=== PATIENT | female | born 1960 | race Caucasian/White ===

== ENCOUNTER → 2017-10-07 | Outpatient (CLI) | payer OTHER ==
[~2017-10-07] MED LIST: AMOX500T10 PO; BENZ200C15 PO; CALC-635 PO; ESC10 PO; EST3 PO; LUTE10TA3 PO; LUTE20CA11 PO; LUTE6CAP11 PO; MULT-820 PO; MULT-885 PO; SUMA100T33 PO; SUMA4PEN3 SQ; TOPI50TA92 PO; TOPI50TA99 PO; TRIA5T TOP; VERA240T12 PO; [UNRECOGNIZED DRUG - CODE] PO; verapamil PO
--- NOTE | 2017-10-12 09:08 | RADIOLOGY IMAGING REPORT ---
FACILITY: [facility] - [place] PATIENT NAME: TYE HAYS : [id number] MR: [id number] V: [id number] EXAM DATE: [id number] ORDERING PHYSICIAN: ADRIAN NORIEGA TECHNOLOGIST: Rashida Cyr PROCEDURE:BILATERAL DIGITAL SCREENING MAMMOGRAM WITH CAD ASSISTED INTERPRETATION AND 3D BREAST TOMOSYNTHESIS. COMPARISON:Prior mammograms dated 09/29/16, 09/09/16, 08/22/15, 08/20/15, 08/15/14 and 02/21/13. INDICATIONS:SCREENING FINDINGS: Moderately heterogeneous fibroglandular tissue is seen throughout the breasts. The parenchymal pattern has remained stable when allowing for difference in mammographic technique and patient positioning. There is no evidence of malignant appearing mass, malignant appearing calcification or other secondary sign of malignancy in either breast. DIAGNOSTIC CATEGORY 1--NEGATIVE. RECOMMENDATIONS: ROUTINE MAMMOGRAM AND CLINICAL EVALUATION. IMPRESSION: Bi-RADS 1: No significant abnormality is seen. Images were reviewed with R2CAD and 3D breast tomosynthesis. Dictated by: Nathalie Pham M.D. on 10/07/2017 at 15:24 Transcribed by: RYAN on 10/07/2017 at 20:06 Approved by: Nathalie Pham M.D. on 10/12/2017 at 9:07 [facility]
== END ==
LOC: MAMO 00:47
PROVIDERS: ATTEND Internal Medicine
DX: Z12.31 Encounter for screening mammogram for malignant neoplasm of breast (principal)
CPT/HCPCS: 77063; 77067

== ENCOUNTER 2018-01-07 15:10 | Emergency (ER) | payer OTHER ==
[~2018-01-07 15:10] MED LIST changes: +VERA120T14 PO
[2018-01-07] MEDS ORDERED: ASPIRIN 81 MG CHEW PO ONE (15:20)
[2018-01-07] MEDS ORDERED: NS(*) 0.9% 1000 ML BAG 1,000 ML IV ONE (15:25)
[2018-01-07] MEDS ORDERED: SUMA6PEN SQ (15:25)
[2018-01-07] MEDS ORDERED: ADENOSINE IV SOLN 3 MG/ML SYR IVP ONE ×2 (15:25)
[2018-01-07] MEDS ORDERED: ONDANSETRON 4 MG/2 ML VIAL ONE (15:33)
[2018-01-07 15:34] LABS: PLATELET COUNT, AUTOMATED 272 K/uL (150-450)
[2018-01-07] MEDS ORDERED: ONDANSETRON 4 MG/2 ML VIAL IVP ONE (15:45)
--- NOTE | 2018-01-07 16:40 | ER Report ---
History and Physical Time Seen By MD: 15:21 Hx. of Stated Complaint: around 10am patient has been experiencing a rapid heart rate and light headed; patient states that she has a tight pressure in her chest HPI/ROS CHIEF COMPLAINT: Lightheaded and dizzy since 1 PM HISTORY OF PRESENT ILLNESS: 57-year-old female notes she became dizzy around 1 PM and her heart was racing at that time. She does have a history of panic attacks, mitral valve prolapse, and paroxysmal ventricular tachycardia and had an IV treatment of the medication she cannot remember 10 years ago that stopped her heart and the rhythm came back to normal. Patient has been sleeping very poorly recently but states that she is also a long-term poor sleeper. 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 History of migraines in noticed that it is more headaches than his normal and she is taking more Imitrex nasal spray. She has not taken one today. Patient has been on verapamil for her migraines and has recently stopped the migraine. This would only increase the migraines as well as the possibility of having a PSVT. Patient's lightheadedness is described as feeling disequilibrium and off her feet and not as room spinning dizziness. She does not have energy drinks until he has a couple coffee in the morning as far as caffeine. She has allergies this time of year and has some sinus drainage and pressure in the sinuses with occasional sneeze. No itching this time. REVIEW OF SYSTEMS: Constitutional: No fever, no chills. Eyes: No discharge. ENT: No sore throat. Sinus draining and pressure from her allergies with occasional sneezing Cardiovascular: No chest pain but notes a rapid heart rate in the associated lightheadedness. Heart rate in the 176 and the patient says she feels shortness of breath. Respiratory: No cough but some shortness of breath with this rapid heart rate Gastrointestinal: No abdominal pain, no vomiting. Did feel nauseated in the emergency department Genitourinary: No hematuria. Musculoskeletal: No back pain. Skin: No rashes. Neurological: No headache. Allergies: Coded Allergies: Sulfa (Sulfonamide Antibiotics) (Verified Adverse Reaction, Mild, RASH, 01/23/08) Home Meds Active Scripts Topiramate (TOPIRAMATE) 50 Mg Tablet, 1 TAB PO QHS, #90 TAB 1 Refill Prov:ADRIAN NORIEGA MD 09/01/17 Sumatriptan Succinate (SUMATRIPTAN SUCCINATE) 100 Mg Tablet, 1 TAB PO ONCE Y for prn, #9 TAB 11 Refills Prov:ADRIAN NORIEGA MD 06/14/17 Reported Medications Sumatriptan Succinate (SUMATRIPTAN SUCCINATE) 6 Mg/0.5 Ml Pen.injctr, 6 MG SQ 01/07/18 Lutein (LUTEIN) 20 Mg Capsule, 1 CAP PO QDAY, CAPSULE 10/01/15 Multivitamin (DAILY VITAMIN) 1 Each Tablet, 1 EACH PO QDAY 05/09/14 Discontinued Scripts Verapamil Hcl (VERAPAMIL ER) 120 Mg Tablet.er, 1 TAB PO BID, #60 TAB 2 Refills Prov:ADRIAN NORIEGA MD 11/09/17 Past Medical/Surgical History History of migraines, PSVT, mitral valve prolapse, panic attacks and anxiety, and insomnia. Social History of nonsmoker and is retiring soon. Tomorrow is her birthday. Smoking Status: Former Smoker Exposure to Second Hand Smoke?: Yes Constitutional Vital Sign - Last 24 Hours 01/07/18 01/07/18 01/07/18 01/07/18 15:13 15:13 15:15 15:20 Temp 97.5 Pulse 176 172 169 Resp 20 14 17 B/P (MAP) 99/83 99/83 (88) Pulse Ox 99 99 100 O2 Delivery Room Air 01/07/18 01/07/18 01/07/18 01/07/18 15:24 15:25 15:27 15:29 Pulse 172 Resp 18 B/P (MAP) 97/65 (76) 92/79 (83) 86/41 (56) Pulse Ox 100 01/07/18 01/07/18 01/07/18 01/07/18 15:30 15:33 15:35 15:36 Pulse 156 80 Resp 21 19 B/P (MAP) 112/79 (90) 110/82 (91) Pulse Ox 100 100 01/07/18 01/07/18 01/07/18 01/07/18 15:39 15:40 15:42 15:45 Pulse 79 81 Resp 17 25 B/P (MAP) 100/88 (92) 110/79 (89) 109/83 (92) Pulse Ox 100 99 401/07/18 01/07/18 01/07/18 15:48 15:53 15:54 15:57 Pulse 78 Resp 18 B/P (MAP) 112/79 (90) 115/84 (94) 117/84 (95) Pulse Ox 100 01/07/18 01/07/18 01/07/18 01/07/18 16:00 16:03 16:06 16:09 B/P (MAP) 120/84 (96) 117/83 (94) 110/83 (92) 113/83 (93) 01/07/18 01/07/18 01/07/18 01/07/18 16:12 16:15 16:18 16:21 B/P (MAP) 111/80 (90) 113/81 (92) 112/78 (89) 110/80 (90) 01/07/18 01/07/18 01/07/18 01/07/18 16:23 16:24 16:29 16:30 Pulse 79 82 Resp 14 23 B/P (MAP) 112/83 (93) 107/80 (89) Pulse Ox 100 100 01/07/18 01/07/18 01/07/18 01/07/18 16:59 17:00 17:05 17:30 Pulse 82 81 Resp 13 22 B/P (MAP) 112/81 (91) 118/84 (95) Pulse Ox 93 97 01/07/18 17:35 Pulse 81 Resp 7 Pulse Ox 95 Physical Exam General Appearance: The patient is alert, has no immediate need for airway protection and no signs of toxicity. Patient is hyperventilating and anxious. Eyes: Pupils equal and round no pallor or injection. ENT, Mouth: Mucous membranes are moist. Respiratory: There are no retractions, lungs are clear to auscultation. Patient is tachypneic at this time Cardiovascular: Initial heart rate in the 170s. IV was starting and before adenosine was given her heart rate returned to normal. Patient's blood pressure was low and patient was given a liter rapid bolus which may have contributed to the conversion to normal heart rate. Gastrointestinal: Abdomen is soft and non tender, no masses, bowel sounds normal. Neurological: Oriented 3 and alert. Patient is anxious. Proper speed responding in her speech. Skin: Warm and dry, no rashes. Musculoskeletal: Neck is supple non tender. Extremities are nontender, nonswollen and have full range of motion. No pretibial edema. DIFFERENTIAL DIAGNOSIS: After history and physical exam differential diagnosis was considered for narrow complex tachycardia including but not limited to various causes of sinus tachycardia, SVT, atrial flutter and atrial fibrillation. Appears to be PSVT and patient converted to normal sinus herself. There is a few PACs and PVCs and then no further ectopy evidenced by me. Patient had poor R-wave progression with Q waves in V1, V2, V3 consistent with possible old anterior infarct age undetermined. There was nothing seen by me was acute. Medical Decision Making Data Points Result Diagram: 01/07/18 1517 01/07/18 1517 Laboratory Hematology Test 01/07/18 15:17 01/07/18 17:00 Red Blood Count 5.11 M/uL (4.17-5.56) Mean Corpuscular Volume 86.1 fL (80.0-96.0) Mean Corpuscular Hemoglobin 28.6 pg (26.0-33.0) Mean Corpuscular Hemoglobin Concent 33.2 g/dL (32.0-36.0) Red Cell Distribution Width 14.8 % (11.5-14.5) Mean Platelet Volume 10.4 fL (7.2-11.1) Neutrophils (%) (Auto) 50.8 % (39.4-72.5) Lymphocytes (%) (Auto) 39.7 % (17.6-49.6) Monocytes (%) (Auto) 7.7 % (4.1-12.4) Eosinophils (%) (Auto) 1.2 % (0.4-6.7) Basophils (%) (Auto) 0.6 % (0.3-1.4) Nucleated RBC Relative Count (auto) 0.0 /100WBC Neutrophils # (Auto) 3.7 K/uL (2.0-7.4) Lymphocytes # (Auto) 2.9 K/uL (1.3-3.6) Monocytes # (Auto) 0.6 K/uL (0.3-1.0) Eosinophils # (Auto) 0.1 K/uL (0.0-0.5) Basophils # (Auto) 0.0 K/uL (0.0-0.1) Nucleated RBC Absolute Count (auto) 0.00 K/uL Sodium Level 136 mmol/L (137-145) Potassium Level 3.9 mmol/L (3.5-5.0) Chloride Level 99 mmol/L (98-107) Carbon Dioxide Level 19 mmol/L (22-31) Blood Urea Nitrogen 19 mg/dl (7-18) Creatinine 1.20 mg/dl (0.52-1.04) Glomerular Filtration Rate Calc 46.0 Random Glucose 121 mg/dl (75-110) Calcium Level 10.3 mg/dl (8.4-10.2) Magnesium Level 2.1 mg/dl (1.7-2.2) Total Bilirubin 0.6 mg/dl (0.2-1.3) Aspartate Amino Transf (AST/SGOT) 67 U/L (0-35) Alanine Aminotransferase (ALT/SGPT) 58 U/L (0-56) Alkaline Phosphatase 81 U/L (0-126) Total Protein 7.1 gm/dl (6.3-8.2) Albumin 4.4 g/dl (3.5-5.0) Troponin I 0.483 ng/ml Chemistry Test 01/07/18 15:17 01/07/18 17:00 White Blood Count 7.3 k/uL (4.5-11.0) Red Blood Count 5.11 M/uL (4.17-5.56) Hemoglobin 14.6 g/dL (12.0-16.0) Hematocrit 44.0 % (34.0-47.0) Mean Corpuscular Volume 86.1 fL (80.0-96.0) Mean Corpuscular Hemoglobin 28.6 pg (26.0-33.0) Mean Corpuscular Hemoglobin Concent 33.2 g/dL (32.0-36.0) Red Cell Distribution Width 14.8 % (11.5-14.5) Platelet Count 272 K/uL (150-450) Mean Platelet Volume 10.4 fL (7.2-11.1) Neutrophils (%) (Auto) 50.8 % (39.4-72.5) Lymphocytes (%) (Auto) 39.7 % (17.6-49.6) Monocytes (%) (Auto) 7.7 % (4.1-12.4) Eosinophils (%) (Auto) 1.2 % (0.4-6.7) Basophils (%) (Auto) 0.6 % (0.3-1.4) Nucleated RBC Relative Count (auto) 0.0 /100WBC Neutrophils # (Auto) 3.7 K/uL (2.0-7.4) Lymphocytes # (Auto) 2.9 K/uL (1.3-3.6) Monocytes # (Auto) 0.6 K/uL (0.3-1.0) Eosinophils # (Auto) 0.1 K/uL (0.0-0.5) Basophils # (Auto) 0.0 K/uL (0.0-0.1) Nucleated RBC Absolute Count (auto) 0.00 K/uL Glomerular Filtration Rate Calc 46.0 Calcium Level 10.3 mg/dl (8.4-10.2) Magnesium Level 2.1 mg/dl (1.7-2.2) Total Bilirubin 0.6 mg/dl (0.2-1.3) Aspartate Amino Transf (AST/SGOT) 67 U/L (0-35) Alanine Aminotransferase (ALT/SGPT) 58 U/L (0-56) Alkaline Phosphatase 81 U/L (0-126) Total Protein 7.1 gm/dl (6.3-8.2) Albumin 4.4 g/dl (3.5-5.0) Troponin I 0.483 ng/ml EKG/Imaging EKG Interpretation EKG #1: Supraventricular tachycardia with a ventricular heart rate of 70 bpm otherwise normal EKG EKG #2 Normal sinus rhythm possible anterior infarct age undetermined abnormal EKG. EKG #3 Sinus rhythm with occasional PVCs and PACs. Possible anterior infarct age undetermined. Abnormal EKG EKG was on the patient when a PVC and PAC was noted and it was printed. Did not see any further ectopy. Monitor Interpretation: Supraventricular Tach ED Course/Re-evaluation Clinical Indication for ER IV: Hypotention ED Course 01/07/2018 4:36:58 pm Patient present with a history of PSVT and a heart rate in 170s. Patient converted to normal sinus on own and a few PVCs and PACs noted. No other ectopy was noted. Troponin elevated to 0.29. 01/07/2018 5:44:00 pm Just received repeat troponin and it was 0.483. We'll call plant facilities technician for probable transport. 01/07/2018 6:22:29 pm Patient was except by plant facilities technician Dr. Arthur and also by hospitalist Dr. George. Patient be transported to [facility] in [place]. Decision to Disposition Date: Jan 07, 2018 Decision to Disposition Time: 18:24 Depart Departure Latest Vital Signs Vital Signs Date Time Temp Pulse Resp B/P (MAP) Pulse Ox O2 Delivery O2 Flow Rate FiO2 01/07/18 17:35 81 7 95 01/07/18 17:30 118/84 (95) 01/07/18 15:13 97.5 Room Air Impression: Primary Impression: PSVT (paroxysmal supraventricular tachycardia) Additional Impression: Elevated troponin I level Condition: Improved Disposition: XFER TO [facility]UTE [facility]ARE [facility] Referrals: ADRIAN NORIEGA MD (PCP) Problem Qualifiers GERALDINE TUCKER MD Jan 07, 2018 16:40
--- NOTE | 2018-01-07 16:53 | EKG ---
FACILITY: [facility] - [place] PATIENT NAME: TYE HASY : [id number] MR: [id number] V: [id number] EXAM DATE: ORDERING PHYSICIAN: GERALDINE TUCKER TECHNOLOGIST: MARY ANN Mohan Reason : CARDIAC PROBLEMS Blood Pressure : / mmHG Vent. Rate : 170 BPM Atrial Rate : 174 BPM P-R Int : 000 ms QRS Dur : 104 ms QT Int : 272 ms P-R-T Axes : 000 072 022 degrees QTc Int : 457 ms Supraventricular tachycardia Otherwise normal ECG No previous ECGs available Confirmed by ABAD MCFADDEN ([id number]) on 01/08/2018 6:23:23 AM Referred By: Confirmed By:ABAD MCFADDEN
--- NOTE | 2018-01-07 16:53 | EKG ---
FACILITY: [facility] - [place] PATIENT NAME: TYE HAYS : [id number] MR: [id number] V: [id number] EXAM DATE: ORDERING PHYSICIAN: GERALDINE TUCKER TECHNOLOGIST: MARY ANN Mohan Reason : REPEAT Blood Pressure : / mmHG Vent. Rate : 064 BPM Atrial Rate : 064 BPM P-R Int : 148 ms QRS Dur : 082 ms QT Int : 334 ms P-R-T Axes : 072 077 062 degrees QTc Int : 344 ms Normal sinus rhythm Possible Anterior infarct , age undetermined Abnormal ECG When compared with ECG of 07-JAN-2018 15:11, Vent. rate has decreased BY 106 BPM Confirmed by ABAD MCFADDEN ([id number]) on 01/08/2018 6:23:35 AM Referred By: Confirmed By:ABAD MCFADDEN
--- NOTE | 2018-01-07 17:55 | EKG ---
FACILITY: [facility] PATIENT NAME: TYE HAYS : [id number] MR: [id number] V: [id number] EXAM DATE: ORDERING PHYSICIAN: GERALDINE TUCKER TECHNOLOGIST: MARY ANN Mohan Reason : elevated troponin Blood Pressure : / mmHG Vent. Rate : 077 BPM Atrial Rate : 077 BPM P-R Int : 158 ms QRS Dur : 082 ms QT Int : 400 ms P-R-T Axes : 075 069 053 degrees QTc Int : 452 ms Normal sinus rhythm Possible Anterior infarct (cited on or before 07-JAN-2018) Abnormal ECG When compared with ECG of 07-JAN-2018 15:25, QT has lengthened Confirmed by ABAD MCFADDEN ([id number]) on 01/08/2018 6:23:48 AM Referred By: Confirmed By:ABAD MCFADDEN
[2018-01-07 19:00] VITALS: BP 120/88
== END 2018-01-07 19:25 | disposition short-term general hospital (02) ==
LOC: ER 15:22
DX: I47.1 Supraventricular tachycardia (principal); R79.89 Other specified abnormal findings of blood chemistry
CPT/HCPCS: 36415; 83735; 84443; 84484; 85025; 93005; 96361; 96374; 99285; J2405; J7030; 82040; 82247; 82310; 82374; 82435; 82565; 82947; 84075; 84132; 84155; 84295; 84450; 84460; 84520

== ENCOUNTER 2018-02-02 01:12 | Day surgery (SDC) | payer OTHER ==
[2018-02-02] VITALS (7 sets, daily range): BP systolic 105–119; BP diastolic 73–84
[~2018-02-02] VITALS: Ht 162.6 cm; Wt 58.1 kg
[~2018-02-02 01:12] MED LIST changes: +ASPI81TA94 PO; +FEXO1TAB63 PO; +SUMA6PEN SQ; +VERA240C10 PO
[2018-02-02] MEDS ORDERED: NORMOSOL R SOLN(*) 1000 ML BAG 1,000 ML IV PRN (07:15)
[2018-02-02] MEDS ORDERED: LIDOCAINE/SOD BICARB 8.4% SYR ID ONE (07:15)
[2018-02-02] MEDS ORDERED: PROPOFOL EMUL(*) 10MG/ML 20 ML 20 ML ONE ×2 (07:25→08:21)
--- NOTE | 2018-02-02 08:50 | Short(Outpt) Discharge Summary ---
Discharge Summary Reason for Hosp/Final Diag: (1) Colon cancer screening Status: Chronic Hospital Course & Plan: Colonoscopy with polypectomy x1 completed without problems. Departure Discharge to: Home, Self Care Discharge Instructions Home Meds Active Scripts Topiramate (TOPIRAMATE) 50 Mg Tablet, 1 TAB PO QHS, #90 TAB 1 Refill Prov:ADRIAN NORIEGA MD 09/01/17 Sumatriptan Succinate (SUMATRIPTAN SUCCINATE) 100 Mg Tablet, 1 TAB PO ONCE Y for prn, #9 TAB 11 Refills Prov:ADRIAN NORIEGA MD 06/14/17 Reported Medications Fexofenadine Hcl/Pseudoephedr (LAVONNE-D 24 HOUR TABLET) 1 Each Tabsr, 1 TAB PO QDAY 01/27/18 Verapamil Hcl (VERAPAMIL ER) 240 Mg Tablet.er, 1 TAB PO HS, #90 TAB 3 Refills 01/20/18 Aspirin (ASPIRIN) 81 Mg Tab.chew, 1 TAB PO QDAY, TAKE 1 TABLET BY MOUTH EVERY DAY 01/20/18 Sumatriptan Succinate (SUMATRIPTAN SUCCINATE) 6 Mg/0.5 Ml Pen.injctr, 6 MG SQ 01/07/18 Lutein (LUTEIN) 20 Mg Capsule, 1 CAP PO QDAY, CAPSULE 10/01/15 Multivitamin (DAILY VITAMIN) 1 Each Tablet, 1 EACH PO QDAY 05/09/14 Diet: Regular Activity: As Tolerated Special Instructions: Your colonoscopy was completed without any problems and your prep was excellent (Good Job!!). I removed a single small polyp from your rectum and it was sent to pathology. My office will call you in the next week or so and let you know what the polyp is and when your next colonoscopy should be (either 5 or 10 years depending on pathology results). ABAD MARCH MD February 02, 2018 08:50
== END 2018-02-02 09:45 | disposition home or self-care (01) ==
LOC: OR 01:12
PROVIDERS: ATTEND Surgery
DX: Z12.11 Encounter for screening for malignant neoplasm of colon (principal); K62.1 Rectal polyp
CPT/HCPCS: 00811; 45380; 88305; J2704

== ENCOUNTER → 2019-03-27 | Outpatient (CLI) | payer OTHER ==
[~2019-03-27] MED LIST changes: -VERA120T14 PO; +VERA120T76 PO; -VERA240T12 PO; +VERA240T95 PO
--- NOTE | 2019-03-28 09:51 | RADIOLOGY IMAGING REPORT ---
FACILITY: [facility] PATIENT NAME: TYE HAYS : [id number] MR: [id number] V: [id number] EXAM DATE: [id number] ORDERING PHYSICIAN: ANDI HERRERA TECHNOLOGIST: Aundrea Tobin PROCEDURE: BILATERAL DIGITAL SCREENING MAMMOGRAM WITH CAD ASSISTED INTERPRETATION & 3D TOMOSYNTHESIS. REASON FOR STUDY: Screening. FAMILY HISTORY OF BREAST CANCER: None. BREAST PROCEDURES/TREATMENTS: 2 benign surgical biopsies of the Right breast. COMPARISON: 10/07/17, 09/29/16, 09/09/16, 08/22/15, 08/20/15, 08/15/14. VIEWS OBTAINED: Bilateral 2D & 3D full field CC & MLO projections. BREAST DENSITY: The breasts are heterogeneously dense which can obscure small masses. MAMMOGRAM FINDINGS: The parenchymal pattern has remained stable allowing for difference in mammographic technique & patient positioning. IMPRESSION: BIRADS 1: Negative. DIAGNOSTIC CATEGORY 1--NEGATIVE. RECOMMENDATIONS: ROUTINE MAMMOGRAM AND CLINICAL EVALUATION. Dictated by: Nathalie Pham M.D. on 03/27/2019 at 17:52 Transcribed by: INES on 03/28/2019 at 7:56 Approved by: Nathalie Pham M.D. on 03/28/2019 at 9:47 [facility]
== END ==
LOC: MAMO 00:10
PROVIDERS: ATTEND Emergency Medicine
DX: Z12.31 Encounter for screening mammogram for malignant neoplasm of breast (principal)
CPT/HCPCS: 77063; 77067

== ENCOUNTER → 2019-04-10 | Outpatient (CLI) | payer OTHER ==
--- NOTE | 2019-04-10 12:41 | RADIOLOGY IMAGING REPORT ---
FACILITY: [facility] - [place] PATIENT NAME: Harjeet Youngblood : 1960 MR: [id number] V: [id number] EXAM DATE: ORDERING PHYSICIAN: ANDI BENTON TECHNOLOGIST: Location: [facility] - [place] Patient: Harjeet Youngblood : 1960 Visit/Account:[id number] Date of Sevice: 04/10/2019 ADDENDUM #1 ADDENDUM: Request to compare this ultrasound examination to thyroid ultrasound on 12/26/2012. The left thyroid nodule is unchanged in size measuring 1.9 x 1.7 x 1.5 cm, previously 2.0 x 1.8 x 1.8 cm. In discussion with Dr. Benton, there was a prior ultrasound-guided biopsy from 2009 with benign result. Report Dictated By: Brian Encinas MD at 04/10/2019 2:57 PM Report E-Signed By: Brian Encinas MD at 04/10/2019 2:59 PM ORIGINAL REPORT EXAMINATION: Ultrasound thyroid HISTORY: Enlarged thyroid nodule COMPARISON: None. FINDINGS: Thyroid size: Right lobe: 4.9 x 1.2 x 1.6 cm Left lobe: 4.9 x 1.9 x 1.7 cm Isthmus: 0.1 cm Thyroid heterogeneity: Homogeneous parenchyma. Thyroid vascularity: Normal. Thyroid nodules: Right lobe: * None discrete. Left lobe: * Complex solid nodule noted within the midpole with interrupted peripheral marginal calcifications measuring 1.9 x 1.7 x 1.5 cm Isthmus: * None discrete. Additional findings: None. IMPRESSION: 1. High suspicion, complex solid nodule within the midpole the left lobe of the thyroid. FNA is iris mmended of this nodule. REFERENCE: 2015 [place] [employer] Management Guidelines for Adult Patients with Thyroid Nodules and D ifferentiated Thyroid Cancer: The [place] [employer] Guidelines Task Force on Thyroid Nodul es and Differentiated Thyroid Cancer. SONOGRAPHIC PATTERNS: * High Suspicion: Solid hypoechoic nodule or solid hypoechoic component of a partially cystic nodule with one or more of the following features: irregular margins (infiltrative, microlobulated), microc alcifications, taller than wide shape, rim calcifications with small extrusive soft tissue component, evidence of ETE (extra-thyroidal extension); estimated risk of malignancy >70-90 percent; recommend FNA at > 1 cm. NOTES: * Although a sonographically suspicious subcentimeter thyroid nodule without evidence of extrathyroi maite extension or sonographically suspicious lymph nodes may be observed with close sonographic follow -up rather than pursuing immediate FNA, patient age and preference may modify decision-making. * A > 50% interval increase in nodule volume and/or development of new suspicious sonographic featur es are felt to be a valid reasons for potential re-aspiration of a nodule previously shown to have be nign FNA cytology. Report Dictated By: Iván Vicente DO at 04/10/2019 12:23 PM Report E-Signed By: Iván Vicente DO at 04/10/2019 12:33 PM WSN:[id number]
== END ==
LOC: US 01:03
PROVIDERS: ATTEND Emergency Medicine
DX: E04.1 Nontoxic single thyroid nodule (principal)
CPT/HCPCS: 76536